=== PATIENT | male | born 1975 | race Caucasian/White ===

== ENCOUNTER 2023-08-18 10:00 | Emergency (ER) | payer OTHER ==
[2023-08-18 10:22] VITALS: BP 159/81; PULSE 87; RESP 19; TEMP 97.8; BMI 41.1
[2023-08-18] MEDS ORDERED: OXYMETAZOLINE 0.05% NASAL SOLUTION 15 ML BOTTLE NS ONE (10:55)
== END 2023-08-18 12:59 | disposition left against medical advice (07) ==
LOC: JER 10:00
DX: R04.0 Epistaxis (principal)
CPT/HCPCS: 99281-25